=== PATIENT | male | born 1950 | race Caucasian/White ===

== ENCOUNTER 2018-02-14 07:32 | Day surgery (SDC) | payer MEDICARE, OTHER ==
[~2018-02-14 07:32] MED LIST: GLYCOPYRROLATE 1 MG/5 ML VIAL.; LIDOCAINE 1% PF 2 ML VIAL. ID; MIDAZOLAM HCL/PF 2 MG/2 ML VIAL.; NEOSTIGMINE METHYLSULFATE 5 MG/5 ML SYRINGE.; ONDANSETRON PF 4 MG/2 ML VIAL.; ONDANSETRON PF 4 MG/2 ML VIAL. IV; PROPOFOL 20 ML IV; ROCURONIUM 50 MG/5 ML VIAL.; fentaNYL PF VIAL 100 MCG/2 ML VIAL IV; fentaNYL PF VIAL 250 MCG/5 ML VIAL
[2018-02-14] MEDS: BUPIVACAINE-EPI 0.25%-1:200000 50 ML VIAL. (09:32)
[2018-02-14] MEDS: PROCHLORPERAZINE 10 MG/2 ML VIAL. IV (10:23)
[2018-02-14] MEDS: IV RINGERS,LACTATED 1000ML 1,000 ML IV (10:24)
[2018-02-14] MEDS: fentaNYL PF VIAL 100 MCG/2 ML VIAL IV ×2 (10:24→11:16)
[2018-02-14] MEDS: HYDROcodone/APAP 5/325MG 1 TAB TABLET PO (10:52)
[2018-02-14] MEDS ORDERED: ceFAZolin 2GM PREMIX 2 GM/50 ML BAG IV (12:00)
== END 2018-02-14 12:30 | disposition home or self-care (01) ==
LOC: SURG 07:32
DX: K42.9 Umbilical hernia without obstruction or gangrene (principal); E78.00 Pure hypercholesterolemia, unspecified; K21.9 Gastro-esophageal reflux disease without esophagitis; F41.9 Anxiety disorder, unspecified; I10 Essential (primary) hypertension; Z98.890 Other specified postprocedural states; Z98.52 Vasectomy status; Z87.39 Personal history of other diseases of the musculoskeletal system and connective tissue
CPT/HCPCS: 49585; J0690; J0780; J1956; J2250; J2405; J2704; J2710; J3010; J3490

== ENCOUNTER → 2018-04-26 | Outpatient (CLI) | payer MEDICARE | END | disposition home or self-care (01) | LOC: KCIC MRI 08:15 | DX: M47.896 Other spondylosis, lumbar region (principal); M12.88 Other specific arthropathies, not elsewhere classified, other specified site; M51.26 Other intervertebral disc displacement, lumbar region; D18.09 Hemangioma of other sites; I10 Essential (primary) hypertension; E78.5 Hyperlipidemia, unspecified; E78.00 Pure hypercholesterolemia, unspecified; K21.9 Gastro-esophageal reflux disease without esophagitis; Z87.39 Personal history of other diseases of the musculoskeletal system and connective tissue | CPT/HCPCS: 72148 ==